=== PATIENT | female | born 1990 | race Caucasian/White ===

== ENCOUNTER 2016-12-06 08:27 | Emergency (ER) | payer MEDICAID, OTHER ==
[2016-12-06 09:15] VITALS: BMI 38.2
--- NOTE | 2016-12-06 10:08 | OBHP ---
Datetime: 12/06/2016 10:02 IP Adm Impression: Term, intrauterine IP Admit Plan: Discharge home Admit Comment, IP Provider: IUP at 39w 6d pt of Dr Cruz in [place]. c/o ctx pain some blood no giuseppe wehn she wiped this morning. No SROM. +FM PNC Dr Ruiz chart rev'd only thrid tri labs and GBS+ seen PMH: denies PSH denies POBGYNH: no STD; x1 FT and 5mo stillborn A: IUP at 39w not in labor reassuring FHR tracing PLAN: D/C home labor instructions/pre-eclampsia warning f/u Dr Chairez later this week as scheduled on monday Pelvic Type - PN: Adequate Extremities - PN: Normal Abdomen - PN: Normal Back - PN: Normal Breast - PN: Not Done Lungs - PN: Normal Heart - PN: Normal Thyroid - PN: Normal Neurologic - PN: Normal HEENT - PN: Normal General - PN: Normal Presentation-Admit: Vertex FHR - Baseline A Provider: 140 Comments, ACOG Physical Exam: ROS: Geneeral no fatigue HEENT: No CHOPRA no visual dist CV: no CP; no SOB Resp: no SOB no cough GI: No N/V/D : no F/U/D MS: no joint pain Pool Provider: Negative IP Hx Assessment: The History has been Reviewed and is Current EGA AdmitDate IP: 39.6 Vital Signs Provider: Reviewed; Within Normal Limits IP Chief Complaint: Uterine contractions NICHD Variability Prov Fetus A: Moderate 6-25bpm NICHD Accel Fetus A IP Provider: 15X15 FHR Category Provider Fetus A: Category I NICHD Decel Fetus A IP Provider: None Dilatation, Provider: FT Effacement, Provider: 0 Station, Provider: high Genitourinary Exam: Normal DTRs - PN: Normal
--- NOTE | 2016-12-07 13:34 | OBDS ---
DELIVERY PERSONNEL Nurse Production Officer Certified: jairo Delivery Doctor: Dr Pa Gunter Nurse: jairo Construction Equipment Overhauler: SHELBY Ochoa; SHELBY Lemus Anesthesiologist: Dr Dodson Resident: jairo MATERNAL INFORMATION Delivery Anesthesia: Epidural Medications in Delivery: Pitocin 30 u in RL 500cc Estimated Blood Loss (ml): 250 Placenta Cultured: No Maternal Complications: None RN Comments: to alive baby boy apgar9/9 see MD notes below; delivery was uneventful Provider Comments: Delivered a live baby boy at 12:57 PM the baby was bulb suctioned on the perineum and transferred to maternal chest. The cord was clamped and cut and 3 vessels noted, cord blood was obtained and sent to the lab. The placenta was delivered at 1 PM intact. There were no vaginal lacera tions the estimated blood loss was 200 mL. The mother tolerated the procedure well the baby went to [facility] with Apgars of 9 and 9 weighing 3270 g LABOR SUMMARY EDC: 12/07/2016 00:00 No. Babies in Womb: 1 Attempted: No Labor Anesthesia: None LABOR INFORMATION Onset of Labor: 12/07/2016 05:00 Complete Dilatation: 12/07/2016 12:45 Other Ripening Agents: na Oxytocin: N/A Group B Beta Strep: Positive Antibiotics # of Doses: 2 Antibiotics Time of Last Dose: 1215 Steroids Given: None Reason Steroids Not Administered: Not Applicable Other Reason Not Administered: na MEMBRANES Membranes Rupture Method: Artificial Rupture of Membranes: 11/30/2016 11:20 Length of Rupture (hrs): 169.62 Amniotic Fluid Color: Clear Amniotic Fluid Amount: Small Amniotic Fluid Odor: Normal STAGES OF LABOR Stage 1 hrs: 7 Stage 1 min: 45 Stage 2 hrs: 0 Stage 2 min: 12 Stage 3 hrs: 0 Stage 3 min: 3 Total Time in Labor hrs: 8 Total Time in Labor min: 0 VAGINAL DELIVERY Episiotomy: None Laceration Extension: N/A Laceration Type: None Other Laceration: na Laceration Repair: na Initial Vag Sponge Count: 5 Final Vag Sponge Count: 5 Initial Vag Sharps Count: 0 Final Vag Sharps Count: 0 Sharps Count Correct: Yes Count Comment: correct BABY A INFORMATION Infant Delivery Date/Time: 12/07/2016 12:57 Method of Delivery: Vaginal Born in Route : No : N/A Forceps: N/A Vacuum Extraction: N/A Shoulder Dystocia : No SHOULDER DYSTOCIA BABY A Delivery Date/Time: 12/07/2016 12:57 PRESENTATION/POSITION BABY A Presentation: Cephalic Cephalic Presentation: Vertex Vertex Position: Right Occipital Anterior Breech Presentation: N/A PLACENTA INFORMATION BABY A Placenta Delivery Time : 12/07/2016 13:00 Placenta Method of Delivery: Spontaneous Placenta Status: Delivered SCORES BABY A Heart Rate 1 min: >100 bpm Resp Effort 1 min: Good Cry Reflex Irritability 1 min: Cough or Sneeze or Pulls Away Muscle Tone 1 min: Active Motion Color 1 min: Body [place], Extremities Blue SCORE 1 MIN: 9 Heart Rate 5 min: >100 bpm Resp Effort 5 min: Good Cry Reflex Irritability 5 min: Cough or Sneeze or Pulls Away Muscle Tone 5 min: Active Motion Color 5 min: Body [place], Extremities Blue SCORE 5 MIN: 9 INFORMATION BABY A Gestational Age at Delivery: 40.0 Gestational Status: Term Infant Outcome : Liveborn Condition : Stable Infant Sex: Male IDENTIFICATION/MEDS BABY A ID Band Number: [id number] ID Band Location: Left Leg; Left Arm WEIGHT/LENGTH BABY A Infant Birthweight (gms): 3270 Weight (lb): 7 Infant Weight (oz): 3 CORD INFORMATION BABY A No. Cord Vessels: 3 Nuchal Cord : N/A Nuchal Cord Other: na True Knot: na Infant Cord pH Baby Arterial: na Cord pH Baby Venous: na Cord Blood Taken: Yes Banking/Donate Info: na Suction: Mouth; Nose; Pharynx
== END 2016-12-06 10:00 | disposition home or self-care (01) ==
LOC: H.EROB2 08:27
DX: O47.1 False labor at or after 37 completed weeks of gestation (principal); Z3A.39 39 weeks gestation of pregnancy

== ENCOUNTER 2016-12-07 06:19 | Inpatient (IN) | payer OTHER ==
[2016-12-07] MEDS ORDERED: Penicillin G Potassium 5 MU in Sodium Chloride 0.9% 50 ML IVPB ONE (07:37)
[2016-12-07] MEDS ORDERED: Penicillin G 5 Million Unit Vial IVPB ONE (07:43)
[2016-12-07] MEDS: Lactated Ringer's 1,000 ML IV SCH ×4 (07:46→15:26)
--- NOTE | 2016-12-07 07:55 | OBHP ---
Datetime: 12/07/2016 07:42 IP Adm Impression: Term, intrauterine ; Active labor; Intact Membranes IP Adm Impression Other: GBS+ IP Admit Plan: Admit to unit; Initiate labor protocol IP Admit Plan Other: IV Abx Admit Comment, IP Provider: Pt is a 26 y/o female at 40weeks presenting to L_D with complaints of contraction that has been regular since 6am. Pt reports she was having cramps all day yesterday. P regnancy was uneventful but had a demise at 5months in 2008 and first delivery was a home. Pt r eports her second she had hypertension in , but for this her blood press ure has been normal. care: Dr Whitney Barrios Office/ chart rev'ddocumented labs only from third tri.. .last sono Nov 08 - 6lb PE- see indicated Labs: Missing Rubella status and Hepatitis GBS postive 3rd trimester RPR and HIV negative A/P 26 y/o female at 40weeks in active labor Admit to L_D for routine management of active labor NPO labs ordered Anesthesia consulted for Epidural OB Hospitalist note: This pt was seen and examined by me. GBS + will start PCN Agree with above note. MAHNDO Pelvic Type - PN: Adequate Extremities - PN: Normal Abdomen - PN: Normal Back - PN: Normal Breast - PN: Normal Lungs - PN: Normal Heart - PN: Normal Thyroid - PN: Normal Neurologic - PN: Normal HEENT - PN: Normal General - PN: Normal Presentation-Admit: Vertex FHR - Baseline A Provider: 140 Membranes, Provider: Intact Contraction Comments Provider: occ Comments, ACOG Physical Exam: ROS: General: no weakness; no fatigue HEENT: no CHOPRA; no visual dist CV: no palpitations; no no CP GI: noN/V no diarhea No epigastric pain; non radiating : no F/U/D MS: No joint pain Pool Provider: Negative IP Hx Assessment: The History has been Reviewed and is Current EGA AdmitDate IP: 40.0 Vital Signs Provider: Reviewed IP Chief Complaint: Uterine contractions NICHD Variability Prov Fetus A: Moderate 6-25bpm NICHD Accel Fetus A IP Provider: 15X15 FHR Category Provider Fetus A: Category I NICHD Decel Fetus A IP Provider: None Dilatation, Provider: 4 Effacement, Provider: 75 Station, Provider: -1 Genitourinary Exam: Normal DTRs - PN: Normal
[2016-12-07 07:57] VITALS: BP 118/75; PULSE 84; RESP 18; TEMP 98.5; O2SAT 100
[2016-12-07] MEDS ORDERED: Lidocaine 1% Inj (20ml) ONE (08:00)
[2016-12-07] MEDS ORDERED: Fentanyl/Bupivacaine HCl 250 ML EPI ONE ×2 (08:19→09:05)
[2016-12-07 08:21] LABS: BASO % 0.3 % (0.0-2.0); EOS # 0.1 K/uL (0.0-0.7); HEMATOCRIT 37.4 % (34.0-47.0); LYMPH # 1.3 K/uL (1.0-4.3); LYMPH % 14.7 % (20.0-40.0); MEAN CORPUSCULAR HEMOGLOBIN 29.2 pg (27.0-31.0); MEAN CORPUSCULAR HGB CONC 33.6 g/dL (33.0-37.0); MEAN PLATELET VOLUME 8.2 fl (7.2-11.7); MONO # 0.9 K/uL (0.0-0.8); MONO % 10.3 % (0.0-10.0); NEUT # 6.6 K/uL (1.8-7.0); NEUT % 73.7 % (50.0-75.0); NRBC % 0.1 % (0.0-0.0); RED CELL DISTRIBUTION WIDTH 14.3 % (11.5-14.5); WHITE BLOOD COUNT 8.9 K/uL (4.8-10.8)
[2016-12-07 08:24] LABS: MEAN CELL VOLUME 86.8 fl (81.0-99.0)
[2016-12-07] MEDS ORDERED: Oxytocin 30 units/LR 500ML 30 U/500 ML BAG IV ONE ×2 (11:32→11:38)
[2016-12-07] MEDS ORDERED: Oxycodone/Acetaminophen 5/325 mg Tab PO PRN (13:10)
[2016-12-07] MEDS: Oxycodone/Acetaminophen 5/325 mg Tab PO PRN ×2 (14:40→18:43)
[2016-12-08] MEDS: Oxycodone/Acetaminophen 5/325 mg Tab PO PRN ×3 (07:38→20:04)
[2016-12-08 07:43] LABS: HEMATOCRIT 34.6 % (34.0-47.0); MEAN CELL VOLUME 86.9 fl (81.0-99.0); MEAN CORPUSCULAR HEMOGLOBIN 29.5 pg (27.0-31.0); MEAN CORPUSCULAR HGB CONC 33.9 g/dL (33.0-37.0); RED CELL DISTRIBUTION WIDTH 14.8 % (11.5-14.5); WHITE BLOOD COUNT 7.4 K/uL (4.8-10.8)
--- NOTE | 2016-12-09 13:43 | OBDCSUM ---
Datetime: 12/09/2016 06:45 Discharged to, Provider: Home Follow up at, Provider: Dr. Olson Disch Instr Activity: Normal activity Disch Instr Diet: Regular Discharge Instructions, Provider: Routine instructions given Discharge Diagnosis, Provider: Term Delivered Discharge Time: 12/09/2016 12:00 Follow up in weeks, Provider: 2-6 weeks Disch Referrals: None Disch Activity Restrictions: No exercising; No lifting; No sexual activity; Nothing in vagina - Inte rcourse, tampons, douche Discharge Comment, Provider: PPD # 2 Patient feeling well this AM, laying comfortably in bed. Denies dizziness/weakness/nausea or vomit ing. Has flatus and had bowel movement yet. Patient has normal urine output. Tolerating PO diet, has no difficulty ambulating. Patient is bottle feeding, does not want to breastfeed. No concerns or comp laints at this time. PE: VSS Lungs: CTABL Cardiac: S1 S2 rrr, no murmurs/rubs/gallops Abd: bowel sound present, soft, no tenderness to palpation, fundus firm below level of umbilicus Ext: no edema bilaterally A: 26 yr s/p PPD 2 P: -Discharge home -Ibuprofen 600mg PO Q6 PRN pain -encouraged breast feeding -no sexual intercourse, nothing in the vagina -Follow up with Dr. Olson your obgyn in 6 weeks -Take baby to your [place] [employer] review medical director in 2-3 days. May f/u in 2wks to discuss iud for contraception. Contraception after Delivery: Foam/Condoms; Undecided
--- NOTE | 2016-12-09 13:43 | OBPPN ---
Datetime: 12/09/2016 06:42 PP Pain Prov: Within normal limits PP Nausea Prov: Denies PP Flatus Prov: Yes PP BM Prov: Yes PP Breasts Prov: Normal PP Heart Prov: Normal PP Lungs Prov: Normal PP Abdomen/Uterus Prov: Normal PP Lochia Prov: Normal PP CVA Tenderness Prov: Normal PP Extremities Prov: Normal PP C/S Incision Prov: Not Applicable PP Progress Prov: Abnormal PP Impression Prov: Normal progression PP Plan Prov: Continue present management PP Progress Note Prov: PPD # 2 Patient feeling well this AM, laying comfortably in bed. Denies dizziness/weakness/nausea or vomit ing. Has flatus and had bowel movement yet. Patient has normal urine output. Tolerating PO diet, has no difficulty ambulating. Patient is bottle feeding, does not want to breastfeed. No concerns or comp laints at this time. PE: VSS Lungs: CTABL Cardiac: S1 S2 rrr, no murmurs/rubs/gallops Abd: bowel sound present, soft, no tenderness to palpation, fundus firm below level of umbilicus Ext: no edema bilaterally A: 26 yr s/p PPD 2 P: -Continue present management -encouraged ambulation -pain management -encouraged breast feeding Aranza Winn M.D. -PGY1 OBH ADDENDUM: Agree with above assessment and pln. Reg as above. Benefits of materna l and neon reviewed with pt. Contraception options also d/w pt. IP PP Procedures: None Vital Signs Provider PP: Reviewed; Within Normal Limits Vital Signs Provider Details PP: patient does not want to breastfeed Datetime: 12/08/2016 07:36 PP Comments Phys Exam Prov: -pt not
== END 2016-12-09 15:10 | disposition home or self-care (01) | DRG 372 ==
LOC: H.EROB2 06:19 → H.L&D 07:31 → H.OB/GYN 15:46
PROVIDERS: ADMIT Obstetrics & Gynecology; ATTEND Obstetrics & Gynecology
PROC: 10E0XZZ Delivery of Products of Conception, External Approach (ICD-10-PCS; principal; 2016-12-07)
PROC: 4A1HXCZ Monitoring of Products of Conception, Cardiac Rate, External Approach (ICD-10-PCS; 2016-12-07)
DX: O16.4 Unspecified maternal hypertension, complicating childbirth (principal); O99.824 Streptococcus B carrier state complicating childbirth; Z37.0 Single live birth; Z3A.40 40 weeks gestation of pregnancy

== ENCOUNTER 2017-07-14 12:40 | Emergency (ER) | payer MEDICAID, OTHER ==
[2017-07-14 12:52] VITALS: BP 155/77; PULSE 108; RESP 18; TEMP 99.1; O2SAT 100
[2017-07-14 13:37] LABS: BASO % 0.4 % (0.0-2.0); EOS # 0.1 K/uL (0.0-0.7); EOS % 0.6 % (0.0-4.0); HEMOGLOBIN 12.9 g/dL (12.0-16.0); LYMPH % 19.7 % (20.0-40.0); MEAN CELL VOLUME 88.1 fl (81.0-99.0); MEAN CORPUSCULAR HEMOGLOBIN 29.9 pg (27.0-31.0); MEAN PLATELET VOLUME 7.7 fl (7.2-11.7); MONO # 0.8 K/uL (0.0-0.8); MONO % 7.8 % (0.0-10.0); NEUT # 7.2 K/uL (1.8-7.0); NEUT % 71.5 % (50.0-75.0); RBC 4.3 Mil/uL (3.80-5.20); RED CELL DISTRIBUTION WIDTH 13.2 % (11.5-14.5); WHITE BLOOD COUNT 10.1 K/uL (4.8-10.8)
[2017-07-14 13:46] LABS: ALB/GLOB RATIO 1.3 (1.0-2.1); ALBUMIN 4.2 g/dL (3.5-5.0); ALT/SGPT 64 U/L (9-52); AST/SGOT 58 U/L (14-36); BLOOD UREA NITROGEN 11 mg/dl (7-17); CALCIUM 8.9 mg/dL (8.4-10.2); GFR AFRICAN-AMERICAN > 60; GFR NON-AFRICAN AMERICAN > 60
[2017-07-14 13:53] LABS: SQUAMOUS EPITHIAL 2 /hpf (0-5); URINE BACTERIA RARE (<OCC); URINE BILIRUBIN NEGATIVE (NEGATIVE); URINE BLOOD NEGATIVE (NEGATIVE); URINE CLARITY SLIGHTY-CLOUDY (Clear); URINE COLOR YELLOW (YELLOW); URINE GLUCOSE (UA) NEG (Normal); URINE LEUKOCYTE ESTERASE SMALL Leu/uL (Negative); URINE NITRATE NEGATIVE (NEGATIVE); URINE PROTEIN 30 mg/dL (NEGATIVE)
[2017-07-14 14:05] LABS: PARTIAL THROMBOPLASTIN TIME 32.9 Seconds (25.6-37.1); PROTHROMBIN TIME 11.5 Seconds (9.8-13.1)
--- NOTE | 2017-07-14 14:21 | US ---
PROCEDURE: OB Pelvic Ultrasound HISTORY: Vag bleeding COMPARISON: Pelvic ultrasound dated 05/21/2016. FINDINGS: UTERUS: Gestational sac: Single intrauterine gestation with sac measuring 2.1 centimeter, corresponding to an estimated gestational age is 6 weeks, 5 days. Heart rate: 127 bpm. age (Ultrasound estimated): 6 weeks, 4 days Prema-gestational hemorrhage: Small. Date of delivery (Ultrasound estimated) : 03/05/2018 Uterus measures 8.3 x 5.5 x 6.6 cm. Anteverted. Normal in size and appearance. CERVIX: Long and closed. No cervical abnormality seen. RIGHT OVARY: Measures 3.4 x 1.4 x 1.7 cm. No mass lesion. Normal flow. LEFT OVARY: Measures 3.4 x 2.2 x 2.7 cm and contains a 2.0 x 2.0 x 1.5 centimeter corpus luteum. No solid mass. Normal flow. FREE FLUID: None. OTHER FINDINGS: None. IMPRESSION: Single viable intrauterine gestation with estimated gestational age of 6 weeks, 4 days. heart rate 127 beats per minute. Small subchorionic hemorrhage.
--- NOTE | 2017-07-14 14:23 | ED PDOC ---
HPI: Abdomen Time Seen by Provider: 07/14/17 13:02 Chief Complaint (Nursing): Abdominal Pain Chief Complaint (Provider): Cramping abdominal pain History Per: Patient History/Exam Limitations: no limitations Onset/Duration Of Symptoms: Days (2) Outside of [place] travel?: No Current Symptoms Are (Timing): Still Present Location Of Pain/Discomfort: Suprapubic Additional Complaint(s): 27yo female, , LMP in May, presents to ED for evaluation of 3 days mild abdominal cramping. Patient also states she had mild spotting yesterday but denies any today. She denies any past medical history, surgical history or care. No other complaints. Abnormal Vaginal Bleeding: Yes Last Menstral Period: May : 3 Para: 2 Past Medical History Reviewed: Historical Data, Nursing Documentation, Vital Signs Vital Signs: Last Vital Signs Temp 99.1 F 07/14/17 12:48 Pulse 108 H 07/14/17 12:48 Resp 18 07/14/17 12:48 BP 155/77 H 07/14/17 12:48 Pulse Ox 100 07/14/17 14:26 - Medical History PMH: No Chronic Diseases - Surgical History Surgical History: No Surg Hx - Family History Family History: States: No Known Family Hx, Unknown Family Hx - Immunization History Hx Tetanus Toxoid Vaccination: Yes Hx Influenza Vaccination: No Hx Pneumococcal Vaccination: No - Home Medications Home Medications: Ambulatory Orders Medication Instructions Recorded Acetaminophen [Tylenol 325mg tab] 650 mg PO Q6 #30 tab 04/28/17 Acetaminophen/Cod NO 4 1 tab PO Q4 PRN #20 tab 04/28/17 [Tylenol/Cod 300 mg-60 mg] Ibuprofen [Advil] 200 mg PO PRN PRN 04/28/17 Ibuprofen [Motrin] 600 mg PO Q6 #30 tab 04/28/17 Penicillin VK [Penicillin VK Tab] 500 mg PO TID #35 tab 04/28/17 - Allergies Allergies/Adverse Reactions: Allergies Allergy/AdvReac Type Severity Reaction Status Date / Time No Known Allergies Allergy Verified 04/28/17 16:15 Review of Systems ROS Statement: Except As Marked, All Systems Reviewed And Found Negative Gastrointestinal: Positive for: Abdominal Pain Genitourinary Female: Positive for: Vaginal Bleeding (spotting 2 days ago) Physical Exam - Reviewed Nursing Documentation Reviewed: Yes Vital Signs Reviewed: Yes - Physical Exam Appears: Positive for: Non-toxic, No Acute Distress Head Exam: Positive for: ATRAUMATIC, NORMAL INSPECTION, NORMOCEPHALIC Skin: Positive for: Normal Color Eye Exam: Positive for: Normal appearance Neck: Positive for: Supple Cardiovascular/Chest: Positive for: Regular Rate, Rhythm Respiratory: Positive for: Normal Breath Sounds. Negative for: Respiratory Distress Gastrointestinal/Abdominal: Positive for: Normal Exam, Soft. Negative for: Tenderness Back: Positive for: Normal Inspection Extremity: Positive for: Normal ROM Neurologic/Psych: Positive for: Alert, Oriented - Laboratory Results Result Diagrams: 07/14/17 13:31 07/14/17 13:31 - ECG O2 Sat by Pulse Oximetry: 100 (RA) Pulse Ox Interpretation: Normal Medical Decision Making Medical Decision Making: Time: 1303 Impression: Vaginal Spotting in setting of Plan: -- Labs -- US OB Reassess Time: 1425 Patient left before treatment was completed. Scribe Attestation: Documented by Viviana Klein acting as a scribe for Joy Glez MD. Provider Attestation: All medical record entries made by the Scribe were at my direction and personally dictated by me. I have reviewed the chart and agree that the record accurately reflects my personal performance of the history, physical exam, medical decision making, and the department course for this patient. I have also personally directed, reviewed, and agree with the discharge instructions and disposition. Disposition - Clinical Impression Clinical Impression: Threatened - Disposition Disposition: Left W/O Treatment Disposition Time: 14:25 Condition: UNKNOWN Forms: Hoodin (Divehi)
== END 2017-07-14 14:23 | disposition left against medical advice (07) ==
LOC: H.ER 12:40
DX: O20.0 Threatened abortion (principal); Z3A.01 Less than 8 weeks gestation of pregnancy

== ENCOUNTER 2017-08-26 15:27 | Emergency (ER) | payer MEDICAID ==
[2017-08-26 15:59] VITALS: BP 120/72; PULSE 81; RESP 16; TEMP 97.6; O2SAT 100
--- NOTE | 2017-08-26 16:47 | ED PDOC ---
HPI: Female Pain Time Seen by Provider: 08/26/17 16:03 Chief Complaint (Nursing): Female Genitourinary Chief Complaint (Provider): Female Genitourinary History Per: Patient History/Exam Limitations: no limitations Onset/Duration Of Symptoms: Days (x2) Current Symptoms Are (Timing): Still Present Additional Complaint(s): 27 year old female with no significant past medical history, who presents to the ED complaining of vaginal bleeding with associated cramping x2 days. States over the course the previous evening and today the bleeding and cramping worsened. Also states the bleeding and cramping are both worse than others in the past. Reports clots the size of her hand. Confirms mild lightheadedness. Says July of last year she took RU-486 to terminate . Reports small amount of bleeding after taking it, but says she was otherwise fine. States she hasnt taken a test since then. Also states this is her first period since termination. Patient is G4, P2 with 1 previous miscarriage, this past termination, and 2 live births. PMD: Non-[facility] Provider : 4 Para: 2 Miscarriage: 1 Past Medical History Reviewed: Historical Data, Nursing Documentation, Vital Signs Vital Signs: Last Vital Signs Temp 97.6 F 08/26/17 15:58 Pulse 81 08/26/17 15:58 Resp 16 08/26/17 15:58 BP 120/72 08/26/17 15:58 Pulse Ox 100 08/26/17 15:58 - Medical History PMH: No Chronic Diseases - Surgical History Surgical History: No Surg Hx - Family History Family History: States: Unknown Family Hx - Social History Current smoker - smoking cessation education provided: No Alcohol: None Drugs: Denies - Immunization History Hx Tetanus Toxoid Vaccination: Yes Hx Influenza Vaccination: No Hx Pneumococcal Vaccination: No - Home Medications Home Medications: Ambulatory Orders Medication Instructions Recorded Acetaminophen [Tylenol 325mg tab] 650 mg PO Q6 #30 tab 04/28/17 Acetaminophen/Cod NO 4 1 tab PO Q4 PRN #20 tab 04/28/17 [Tylenol/Cod 300 mg-60 mg] Ibuprofen [Advil] 200 mg PO PRN PRN 04/28/17 Ibuprofen [Motrin] 600 mg PO Q6 #30 tab 04/28/17 Penicillin VK [Penicillin VK Tab] 500 mg PO TID #35 tab 04/28/17 - Allergies Allergies/Adverse Reactions: Allergies Allergy/AdvReac Type Severity Reaction Status Date / Time No Known Allergies Allergy Verified 04/28/17 16:15 Review of Systems ROS Statement: Except As Marked, All Systems Reviewed And Found Negative (as per HPI) Physical Exam - Reviewed Nursing Documentation Reviewed: Yes Vital Signs Reviewed: Yes - Physical Exam Appears: Positive for: Non-toxic, No Acute Distress Head Exam: Positive for: ATRAUMATIC, NORMOCEPHALIC Skin: Positive for: Warm, Dry Respiratory: Negative for: Respiratory Distress Gastrointestinal/Abdominal: Positive for: Soft, Tenderness (mild suprapubic). Negative for: Mass, Distended, Guarding, Rebound Neurologic/Psych: Positive for: Alert. Negative for: Motor/Sensory Deficits - Laboratory Results Result Diagrams: 08/26/17 15:20 - ECG O2 Sat by Pulse Oximetry: 100 (RA) Pulse Ox Interpretation: Normal Medical Decision Making Medical Decision Making: Time: 16:03 Initial Impression: Vaginal bleeding. Differential diagnoses include, but are not limited to dysmenorrhea, metrorrhagia, retained product of conception, incomplete termination Plan: --Blood type and screen --Beta-HCG, quantitative --ED urine --ED urine dipstick --CBC w/ differential --Partial thromboplastin --PTT --IV insertion --Transvaginal US --Reevaluation 550p Informed by nurse that patient wanted to leave. Pt underwent US but result and labs still pending. On my arrival to room, pt was already gone. 630p Pt contacted on phone. Reviewed findings with her on the phone. Bleeding precautions given and advised to return for repeat beta hcg in 48-72 hours, or earlier if bleeding more severe or had more severe pain. Scribe Attestation: Documented by Mitch Cooper, acting as a scribe for Arianna Guevara MD. Provider Scribe Attestation: All medical record entries made by the Scribe were at my direction and personally dictated by me. I have reviewed the chart and agree that the record accurately reflects my personal performance of the history, physical exam, medical decision making, and the department course for this patient. I have also personally directed, reviewed, and agree with the discharge instructions and disposition. Disposition - Clinical Impression Clinical Impression: Vaginal bleeding, - Disposition Disposition: Eloped Disposition Time: 17:50 Condition: UNKNOWN
[2017-08-26 17:07] LABS: BASO % 0.3 % (0.0-2.0); EOS # 0.1 K/uL (0.0-0.7); EOS % 1.3 % (0.0-4.0); HEMOGLOBIN 13.5 g/dL (12.0-16.0); LYMPH % 24.5 % (20.0-40.0); MEAN CELL VOLUME 89.2 fl (81.0-99.0); MEAN CORPUSCULAR HEMOGLOBIN 29.5 pg (27.0-31.0); MEAN CORPUSCULAR HGB CONC 33.1 g/dL (33.0-37.0); MONO # 0.4 K/uL (0.0-0.8); MONO % 4.5 % (0.0-10.0); NEUT # 5.8 K/uL (1.8-7.0); NEUT % 69.4 % (50.0-75.0); NRBC % 0.1 % (0.0-0.0); RBC 4.57 Mil/uL (3.80-5.20); RED CELL DISTRIBUTION WIDTH 13.4 % (11.5-14.5); WHITE BLOOD COUNT 8.3 K/uL (4.8-10.8)
[2017-08-26 17:24] LABS: PARTIAL THROMBOPLASTIN TIME 35.2 Seconds (25.6-37.1); PROTHROMBIN TIME 11.5 Seconds (9.8-13.1)
--- NOTE | 2017-08-26 18:14 | US ---
PROCEDURE: OB Pelvic Ultrasound HISTORY: s/p termination with positive preg and heavy bleed COMPARISON: None available. FINDINGS: UTERUS: Uterus measures 7.9 x 5.6 x 4.4 cm. Normal in size and appearance. Endometrium measures 5 millimeter. No intrauterine gestational sac. CERVIX: Long and closed. No cervical abnormality seen. RIGHT OVARY: Measures 2.7 x 2.3 x 1.5 cm. No mass lesion. Normal flow. LEFT OVARY: Measures 2.5 x 2.4 x 1.5 cm. No solid mass. Normal flow. FREE FLUID: None. OTHER FINDINGS: None. IMPRESSION: No intrauterine gestational sac or evidence of retained products of conception. No free fluid. Close clinical follow-up with serial serum beta HCG levels is recommended.
== END 2017-08-26 18:36 | disposition left against medical advice (07) ==
LOC: H.ER 15:27
DX: O46.90 Antepartum hemorrhage, unspecified, unspecified trimester (principal)